=== PATIENT | male | born 1990 | race African-American/Black ===

== ENCOUNTER 2019-03-01 19:59 | Emergency (ER) | payer OTHER ==
[~2019-03-01] VITALS: Ht 188 cm; Wt 84.0 kg
[~2019-03-01 19:59] MED LIST: AMOXICILLIN500 MG PO; AUGMENTIN500TAB PO; BACTRIM DS1 TAB PO; DARVOCET-N 100100 MG OR; KEFLEX500 M1 PO; LORTAB 10-325 M1 TAB PO; NO HOME MEDS
[2019-03-01 21:55] LABS: HEMATOCRIT 37.4 % (39.0-50.0); HEMOGLOBIN 11.9 g/dl (14.0-18.0); IMMATURE GRANULOCYTES 0.4 % (0.0-5.0); MEAN CELL VOLUME 90.6 fL CALC (80.0-100.0); MEAN CORPUSCULAR HGB 28.8 pG CALC (26.0-32.0); MEAN CORPUSCULAR HGB CONC 31.8 g/L CALC (32.0-36.0); NEUT# 3.96 thou/uL (1.82-7.42); RED BLOOD COUNT 4.13 mill/uL (4.70-6.10); RED CELL DISTRI WIDTH 14.5 % (11.5-15.5)
[2019-03-01 22:14] LABS: ALBUMIN 3.6 g/dL (3.2-5.0); AMYLASE 45 u/l (30-110); BILIRUBIN, TOTAL 0.4 mg/dL (0.0-1.4); BUN 10 mg/dL (9-20); BUN/CREATININE RATIO 12 (12-20 (CALC)); CARBON DIOXIDE 28 mmol/l (22-30); CHLORIDE 99 mmol/l (95-108); CREATININE 0.9 mg/dL (0.7-1.3); GFR > 60 ML/MIN (>=60 (CALC)); GFR FOR AFR.AMER. > 60 ML/MIN (>=60 (CALC)); LIPASE 87 u/l (23-300); POTASSIUM 3.7 mmol/l (3.5-5.1); SGOT/AST 25 u/l (17-59)
[2019-03-01 22:15] LABS: ANION GAP 10 (6-22 (CALC)); SODIUM 133 mmol/l (137-146)
[2019-03-01 22:16] LABS: ALKALINE PHOSPHATASE 146 u/l (38-126)
[2019-03-02 00:26] LABS: URINE BILIRUBIN - DIPSTICK NEGATIVE (NEGATIVE); URINE BLOOD DIPSTICK NEGATIVE (NEGATIVE); URINE COLOR YELLOW; URINE GLUCOSE - DIPSTICK NEGATIVE (NEGATIVE); URINE KETONE NEGATIVE (NEGATIVE); URINE LEUK ESTERASE NEGATIVE (NEGATIVE); URINE NITRITE - DIPSTICK NEGATIVE (Negative); URINE PH 6.5 (4.5-8.0); URINE PROTEIN - DIPSTICK NEGATIVE (NEG-TRACE); URINE SPECIFIC GRAVITY <=1.005; URINE UROBILINOGEN - DIPSTICK 0.2 E.U./dL (0.2)
[2019-03-02] MEDS ORDERED: PROTONIX40 MG PO (01:16)
[2019-03-02 04:30] VITALS: BP 118/65
== END 2019-03-02 04:44 | disposition home or self-care (01) | DRG 392 ==
LOC: ED 19:59
PROVIDERS: Emergency Medicine
DX: R10.13 Epigastric pain (principal); R10.12 Left upper quadrant pain; R11.2 Nausea with vomiting, unspecified; R19.7 Diarrhea, unspecified
CPT/HCPCS: Q9967

== ENCOUNTER 2021-06-16 18:47 | Emergency (ER) | payer OTHER ==
[~2021-06-16] VITALS: Ht 188 cm; Wt 86.0 kg
[~2021-06-16 18:47] MED LIST changes: +PROTONIX40 MG PO
[2021-06-16] MEDS ORDERED: KEFLEX500 MG PO (20:31)
[2021-06-16] MEDS ORDERED: FLONASE AL50 MCG/ACT (20:31)
[2021-06-16 20:42] VITALS: BP 126/78
== END 2021-06-16 20:50 | disposition home or self-care (01) | DRG 153 ==
LOC: ED 18:47
DX: J02.9 Acute pharyngitis, unspecified (principal); J32.9 Chronic sinusitis, unspecified; Z20.822 Contact with and (suspected) exposure to COVID-19

== ENCOUNTER 2021-12-28 19:24 | Emergency (ER) | payer OTHER ==
[~2021-12-28] VITALS: Ht 188 cm; Wt 88.0 kg
[~2021-12-28 19:24] MED LIST changes: +FLONASE AL50 MCG/ACT; +KEFLEX500 MG PO
[2021-12-28 20:51] VITALS: BP 128/72
[2021-12-28 21:00] VITALS: BP 123/72
[2021-12-28 21:30] VITALS: BP 119/75
[2021-12-28 22:00] VITALS: BP 121/73
[2021-12-28 22:30] LABS: HEMATOCRIT 38.1 % (39.0-50.0); HEMOGLOBIN 12.2 g/dl (14.0-18.0); IMMATURE GRANULOCYTES 0.5 % (0.0-5.0); MEAN CELL VOLUME 92.7 fL CALC (80.0-100.0); MEAN CORPUSCULAR HGB 29.7 pG CALC (26.0-32.0); NEUT# 5.11 thou/uL (1.82-7.42); RED BLOOD COUNT 4.11 mill/uL (4.70-6.10); RED CELL DISTRI WIDTH 13.4 % (11.5-15.5)
[2021-12-28 22:43] LABS: ALBUMIN 3.7 g/dL (3.2-5.0); ANION GAP 9 (6-22 (CALC)); BILIRUBIN, TOTAL 0.4 mg/dL (0.0-1.4); BUN 9 mg/dL (9-20); BUN/CREATININE RATIO 9 (12-20 (CALC)); CARBON DIOXIDE 27 mmol/l (22-30); CHLORIDE 101 mmol/l (95-108); CREATININE 0.9 mg/dL (0.7-1.3); GFR FOR AFR.AMER. > 60 ML/MIN (>=60 (CALC)); GFR OTHER RACES > 60 ML/MIN (>=60 (CALC)); POTASSIUM 4.1 mmol/l (3.5-5.1); SGOT/AST 29 u/l (17-59); SODIUM 133 mmol/l (137-146); TOTAL PROTEIN 8.2 g/dL (6.3-8.2)
[2021-12-28 22:44] LABS: ALKALINE PHOSPHATASE 56 u/l (38-126)
[2021-12-28] MEDS ORDERED: PAXLOVID PO (22:57)
[2021-12-28 23:35] VITALS: BP 121/73
== END 2021-12-29 00:16 | disposition home or self-care (01) | DRG 179 ==
LOC: ED 19:24
PROVIDERS: Emergency Medicine
DX: U07.1 COVID-19 (principal); R50.9 Fever, unspecified; M79.10 Myalgia, unspecified site; R05.9 Cough, unspecified